=== PATIENT | female | born 1990 | race Caucasian/White ===

== ENCOUNTER 2019-11-07 15:46 | Emergency (ER) | payer SELFPAY ==
[~2019-11-07] VITALS: Ht 160 cm; Wt 80.3 kg
[~2019-11-07 15:46] MED LIST: ACET500T68 PO; CYCL5TAB PO; HYDR-3165 PO; HYDR1TAB10 PO; IBUP800T19 PO; SULF1TAB24 PO
--- NOTE | 2019-11-07 16:09 | PHYS DOC ---
Past History Past Medical History: No Pertinent History Past Surgical History: No Surgical History Smoking: Cigarettes, Greater than 1 pack/day Alcohol Use: Occasionally Drug Use: Marijuana General Adult EDM: Chief Complaint: ABDOMINAL PAIN HPI: HPI: 29-year-old female with past medical history significant for hepatitis presents to the ER with complaint of right upper quadrant abdominal pain. Her symptoms have been ongoing for 5 days and she was seen at [facility] 2 days ago where a CT scan was performed and apparently showed some pyelonephritis and the patient was started on Levaquin. She reports increasing and ongoing pain despite treatment. Her pain is currently moderate to severe and worse with inspiration and movement. She has no nausea or vomiting, constipation or diarrhea. No fever chills have been reported. She has been taking her antibiotics as prescribed. Patient reports a history of IV drug use but has been clean for 1 year. Review of Systems: Review of Systems: All other systems negative except as documented in HPI. Heart Score: Risk Factors: Risk Factors: DM, Current or recent (<one month) smoker, HTN, HLP, family history of CAD, obesity. Risk Scores: Score 0 - 3: 2.5% MACE over next 6 weeks - Discharge Home Score 4 - 6: 20.3% MACE over next 6 weeks - Admit for Clinical Observation Score 7 - 10: 72.7% MACE over next 6 weeks - Early Invasive Strategies Allergies: Allergies: Allergies Coded Allergies Type Severity Reaction Last Updated Verified No Known Drug Allergies 07/19/13 No Physical Exam: PE: Constitutional: Well developed, well nourished, patient appears uncomfortable an d is holding her right upper quadrant HENT: Normocephalic, atraumatic, bilateral external ears normal, oropharynx moist, no oral exudates, nose normal. [] Eyes: PERRLA, EOMI, conjunctiva normal, no discharge. [] Neck: Normal range of motion, no tenderness, supple, no stridor. [] Cardiovascular:Heart rate regular rhythm, no murmur [] Lungs & Thorax: Bilateral breath sounds clear to auscultation [] Abdomen: Bowel sounds normal, soft, right upper quadrant tenderness to palpation Skin: Warm, dry, no erythema, no rash. [] Back: No tenderness, no CVA tenderness. [] Extremities: No tenderness, no cyanosis, no clubbing, ROM intact, no edema. [] Neurologic: Alert and oriented X 3, normal motor function, normal sensory function, no focal deficits noted. [] Psychologic: Affect normal, judgement normal, mood normal. [] EKG: EKG: [] Radiology/Procedures: Radiology/Procedures: Limited US: IMPRESSION: No diagnostic evidence of acute cholecystitis, although minimal gallbladder distention limits evaluation. Poorly visualized pancreas. Course & Med Decision Making: Course & Med Decision Making Pertinent Labs and Imaging studies reviewed. (See chart for details) 1608: Patient seen for right upper quadrant pain x5 days. She prefers not to have an IV started at this time as she has really poor veins and would prefer a straight stick blood drawl and IM pain medications. Will check labs, obtain ultrasound, urinalysis to recheck urine to ensure pyelonephritis is improving. 1729: This patient's work-up is complete at this time and her ultrasound is rather unremarkable showing only mild distention and no evidence of cholecystitis. Her labs do not reveal evidence of infection and her urinalysis does not show evidence of infection either. Her liver enzymes are elevated but she has known hepatitis C which could be causing some discomfort; she has not been treated. At this time will obtain chest x-ray to rule out atypical pneumonia, patient is to continue her Levaquin. If her chest x-ray is negative she will be discharged home with a prescription for tramadol for pain. If she continues to have discomfort she is to call [facility] Surgery for an outpatient follow-up. Haven Disclaimer: Haven Disclaimer: This electronic medical record was generated, in whole or in part, using a voice recognition dictation system. Departure Departure: Impression: Primary Impression: Right upper quadrant abdominal pain Additional Impressions: Elevated liver enzymes Hepatitis C Disposition: 01 HOME/RESIDENCE PRIOR TO ADM Condition: STABLE Referrals: SAI HOPE MD Please call to make an appointment for ongoing discomfort. Patient Instructions: Hepatitis C Additional Instructions: If you continue to have discomfort please call the general surgeon provided for follow-up. You should consider getting treatment for your hepatitis C. Scripts Tramadol Hcl (TRAMADOL HCL) 50 Mg Tablet 50 MG PO PRN Q6HRS PRN for PAIN for 3 Days, #12 TAB 0 Refills Prov: CARA LORA DO 11/07/19 Justification of Admission: Justification of Admission: Justification of Admission Dx: N/A CARA LORA DO Nov 07, 2019 16:09
[2019-11-07] MEDS ORDERED: KETOROLAC 60 MG/2 ML VIAL. IM ONE (16:15)
[2019-11-07 16:38] LABS: BASO % 1 % (0-3); EOS # 0.1 x10^3/uL (0.0-0.7); EOS % 1 % (0-3); HEMATOCRIT 39.8 % (36.0-47.0); HEMOGLOBIN 13.1 g/dL (12.0-15.5); LYMPH # 1.7 x10^3/uL (1.0-4.8); LYMPH % 24 % (24-48); MEAN CORPUSCULAR HEMOGLOBIN 32 pg (25-35); MEAN CORPUSCULAR HGB CONC 33 g/dL (31-37); MEAN CORPUSCULAR VOLUME 96 fL (79-100); MONO # 0.7 x10^3/uL (0.0-1.1); MONO % 9 % (0-9); NEUT # 4.8 x10^3uL (1.8-7.7); NEUT % 65 % (31-73); PLATELET COUNT 253 x10^3/uL (140-400); RED BLOOD COUNT 4.14 x10^6/uL (3.50-5.40); RED CELL DISTRIBUTION WIDTH 13.2 % (11.5-14.5); WHITE BLOOD COUNT 7.3 x10^3/uL (4.0-11.0)
[2019-11-07 16:44] LABS: CALCIUM 8.4 mg/dL (8.5-10.1); CREATININE 0.8 mg/dL (0.6-1.0); GFR 84.8; POTASSIUM 4.3 mmol/L (3.5-5.1)
[2019-11-07 16:50] LABS: ALBUMIN 3.1 g/dL (3.4-5.0); ALBUMIN/GLOBULIN RATIO 0.7 (1.0-1.7); TOTAL BILIRUBIN 0.2 mg/dL (0.2-1.0); TOTAL PROTEIN 7.4 g/dL (6.4-8.2)
[2019-11-07 16:56] LABS: BACTERIA,URINE 0 /HPF (0-FEW); BILIRUBIN,URINE NEG (NEG); CLARITY,URINE HAZY; COLOR,URINE YELLOW; GLUCOSE,URINE NEG (NEG); NITRITE,URINE NEG (NEG); SQUAMOUS EPITHELIAL CELL,UR MOD /LPF
--- NOTE | 2019-11-07 17:17 | RAD ---
EXAMINATION: RIGHT UPPER QUADRANT ULTRASOUND CLINICAL HISTORY: Right upper quadrant abdominal pain TECHNIQUE: Sonography of the right upper quadrant was performed. COMPARISON: None FINDINGS: Pancreas: Poorly visualized secondary to prominent overlying bowel gas. Liver: - Echotexture: Normal, homogeneous. - Echogenicity: Normal - Surface contour: Smooth - Lesions: None. Biliary: No intrahepatic biliary duct dilation. - CBD: 4 mm. - Gallbladder: Minimally distended limiting evaluation for wall thickening. No cholelithiasis or pericholecystic fluid. Right Kidney: Measures 11.7 cm in length. No hydronephrosis or focal lesion. Ascites: None. IMPRESSION: No diagnostic evidence of acute cholecystitis, although minimal gallbladder distention limits evaluation. Poorly visualized pancreas. Electronically signed by: Chris Warren DO (11/07/2019 5:14 PM) [id number]
[2019-11-07 17:30] VITALS: BP 108/61
[2019-11-07] MEDS ORDERED: TRAM50TA PO (17:37)
--- NOTE | 2019-11-07 18:17 | RAD ---
EXAM: CHEST 2 VIEWS. HISTORY: Pain. COMPARISON: None. FINDINGS: Frontal and lateral views of the chest are obtained. There are no confluent infiltrates. There is no pneumothorax or pleural effusion. The heart is not enlarged. IMPRESSION: 1. No confluent infiltrates. Electronically signed by: Tiffanie Sanchez MD (11/07/2019 6:14 PM) [facility]
== END 2019-11-07 18:01 | disposition home or self-care (01) ==
LOC: ER 15:46
DX: R10.11 Right upper quadrant pain (principal); R74.8 Abnormal levels of other serum enzymes; B19.20 Unspecified viral hepatitis C without hepatic coma; F17.210 Nicotine dependence, cigarettes, uncomplicated
CPT/HCPCS: 36415; 71046; 76705; 80053; 81001; 81025; 83690; 85025; 96372; 99285; J1885

== ENCOUNTER 2020-02-27 02:07 | Emergency (ER) | payer SELFPAY ==
[~2020-02-27] VITALS: Ht 160 cm; Wt 90.6 kg
[~2020-02-27 02:07] MED LIST changes: +TRAM50TA PO
[2020-02-27 02:42] LABS: BILIRUBIN,URINE NEG (NEG); CLARITY,URINE HAZY; COLOR,URINE YELLOW; GLUCOSE,URINE NEG (NEG); NITRITE,URINE NEG (NEG); RBC,URINE OCC /HPF (0-2); UROBILINOGEN,URINE 0.2 mg/dL (0.2 mg/dL)
[2020-02-27 02:43] LABS: BACTERIA,URINE FEW /HPF (0-FEW); SQUAMOUS EPITHELIAL CELL,UR FEW /LPF
[2020-02-27 02:45] LABS: U PREG PATIENT NEGATIVE (NEG)
--- NOTE | 2020-02-27 02:58 | PHYS DOC ---
Past History Past Medical History: No Pertinent History Past Surgical History: Other Additional Past Surgical Histo: JAW Smoking: Cigarettes, Greater than 1 pack/day Alcohol Use: None Drug Use: Heroin, Marijuana Adult General Chief Complaint Chief Complaint: MULTIPLE COMPLAINTS [facility] HPI Patient is a 29-year-old female presenting via POV for multiple complaints. First, patient reports what she is concerned of folliculitis of bilateral lower extremities. Started approximately 3 days ago after she shaved her legs. Reports increased erythema, redness and some pustules around certain follicles of her bilateral lower legs. Second, patient complains of dysuria. This has been ongoing for approximately 24 to 48 hours. Patient has no concern for STDs, no discharge or bleeding noted. Lastly, patient complains of painful abscess in left axilla. Patient has history of abscesses in the past. 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 Patient denies any fevers, any chills or diaphoresis, no chest pain or shortness of breath, no abdominal pain, no nausea vomit diarrhea Review of Systems Review of Systems Fourteen body systems of review of systems have been reviewed. See HPI for pertinent positives and negative responses, other sierra all other systems are negative, non-pertinent or non-contributory Allergies Allergies Allergies Coded Allergies Type Severity Reaction Last Updated Verified No Known Drug Allergies 07/19/13 No Physical Exam Physical Exam Constitutional: Well developed, well nourished, no acute distress, non-toxic appearance. HENT: Normocephalic, atraumatic, bilateral external ears normal, oropharynx moist, no oral exudates, nose normal. Eyes: PERRLA, EOMI, conjunctiva normal, no discharge. Neck: Normal range of motion, no tenderness, supple, no stridor. Cardiovascular: Heart rate regular, sinus rhythm, no murmurs rubs or gallops Lungs & Thorax: Bilateral breath sounds clear to auscultation Abdomen: Bowel sounds normal, soft, mild suprapubic tenderness appreciated, no masses, no pulsatile masses. Nonsurgical abdomen, no peritoneal signs Skin: Warm, dry, no erythema, no rash. Patient has findings of folliculitis on bilateral lower extremities. She also has skin abscess that is palpable and fluctuant to palpation under left axilla approximately 4 x 5 cm in size, it is raised and tender to palpation Back: No tenderness, no CVA tenderness. Extremities: No tenderness, no cyanosis, no clubbing, ROM intact, no edema. Neurologic: Alert and oriented X 3, grossly normal motor & sensory function, no focal deficits noted. Psychologic: Anxious affect and mood Current Patient Data Vital Signs Vital Signs Date Time Temp Pulse Resp B/P (MAP) Pulse Ox O2 Delivery O2 Flow Rate FiO2 02/27/20 02:14 97.2 114 16 135/98 (110) 100 Room Air Lab Results Laboratory Tests Test 02/27/20 02:14 Urine Collection Type Unknown Urine Color Yellow Urine Clarity Hazy Urine pH 5.5 Urine Specific [place] >=1.030 Urine Protein Neg (NEG-TRACE) Urine Glucose (UA) Neg mg/dL (NEG) Urine Ketones (Stick) Neg mg/dL (NEG) Urine Blood Trace (NEG) Urine Nitrite Neg (NEG) Urine Bilirubin Neg (NEG) Urine Urobilinogen Dipstick 0.2 mg/dL (0.2 mg/dL) Urine Leukocyte Esterase Trace (NEG) Urine RBC Occ /HPF (0-2) Urine WBC 11-20 /HPF (0-4) Urine Squamous Epithelial Cells Few /LPF Urine Bacteria Few /HPF (0-FEW) Urine Test Negative (NEG) EKG EKG [] Radiology/Procedures Radiology/Procedures [] Heart Score Risk Factors: Risk Factors: DM, Current or recent (<one month) smoker, HTN, HLP, family history of CAD, obesity. Risk Scores: Risk Factors: DM, Current or recent (<one month) smoker, HTN, HLP, family history of CAD, obesity. Course & Med Decision Making Course & Med Decision Making I discussed most likely diagnosis of folliculitis, suspect UTI, and abscess of left axilla. She is high risk for MRSA given history of IV drug abuse etc. Patient's left axilla abscess incised and drained while in ER with copious purulent malodorous material expressed, this material was cultured which is pending. Patient put on Bactrim which will cover abscess, folliculitis and suspect UTI. I disclosed side effects of Bactrim such as Galvan-Ajit skin changes, kidney abnormalities etc. I stressed need for close outpatient follow- up to review today's ER visit. Strict return precautions were also discussed at length with good understanding by patient. Patient voiced understanding and agreement with the plan. Patient knows to come back for repeat evaluation if concerning signs or symptoms present prior to outpatient follow-up. Hemodynamically stable, ambulatory and well-appearing at time of disposition. Dragon Disclaimer Dragon Disclaimer This electronic medical record was generated, in whole or in part, using a voice recognition dictation system. Incision and Drainage Indication: 4 x 5 cm abscess of left axilla that likely will not respond to supportive care practices nor antibiotics alone Procedure: The patient was positioned appropriately and the skin over the inci mitzy site was wiped clean with alcohol prep pad. Local anesthesia was 2% lidocaine without epinephrine, 1 cc was administered. An incision was then made over the abscess and malodorous serosanguineous material was expressed. Loculations were dissected using Q-tip and evacuated. The drainage cavity was then left open to encourage continued drainage of retained materials. The patien ts tetanus status up-to-date. The patient tolerated the procedure well without any observed or reported complications besides expected pain. Departure Departure: Impression: Primary Impression: Abscess Additional Impression: Folliculitis Disposition: HOME SELF CARE/HOMELESS Condition: IMPROVED Referrals: [facility] (PCP) Patient Instructions: Abscess, Care After Additional Instructions: You were evaluated in the Emergency Department for an abscess. Your abscess was incised and drained in the Emergency Department. You should change the dressing every 24 hours. Please keep the areas surrounding the abscess clean and dry. Take the antibiotics prescribed to you in full as directed. Please follow up with your primary care physician as needed. If you do not have a primary doctor, you can call your insurance company to find one. If you do not have insurance, you can go to the finance/registration department for more assistance. Return to the Emergency Department if you experience worsening pain, persistent fevers greater than 100.4, an increase in area of redness, increased tenderness/warmth around the abscess, foul smelling discharge from the abscess, or any other concerning symptoms. Scripts Hydrocodone/Ibuprofen (HYDROCODONE-IBUPROFEN 7.5-200 ) 1 Each Tablet 1 TAB PO PRN Q6HRS PRN for PAIN, #5 TAB 0 Refills Prov: JOJO LUTZ DO 02/27/20 Sulfamethoxazole/Trimethoprim (BACTRIM DS TABLET) 1 Each Tablet 1 TAB PO BID for abscess for 5 Days, #10 TAB 0 Refills Prov: JOJO LUTZ DO 02/27/20 Problem Qualifiers JOJO LUTZ DO Feb 27, 2020 02:58
[2020-02-27] MEDS ORDERED: SMZ/TMP 800/160MG TABLET. PO ONE (03:30)
[2020-02-27] MEDS ORDERED: HYDROcodone/APAP 7.5/325MG 1 TAB TABLET PO ONE (03:30)
[2020-02-27] MEDS ORDERED: SULF1TAB24 PO (03:43)
[2020-02-27] MEDS ORDERED: HYDR-1179 PO (03:43)
[2020-02-27 03:45] VITALS: BP 128/70
== END 2020-02-27 03:48 | disposition home or self-care (01) ==
LOC: ER 02:07
DX: L02.412 Cutaneous abscess of left axilla (principal); L73.9 Follicular disorder, unspecified; F17.210 Nicotine dependence, cigarettes, uncomplicated
CPT/HCPCS: 10060; 81001; 81025; 87086; 99283

== ENCOUNTER 2020-03-29 15:20 | Emergency (ER) | payer SELFPAY ==
[~2020-03-29] VITALS: Ht 160 cm; Wt 88.8 kg
[~2020-03-29 15:20] MED LIST changes: +HYDR-1179 PO
[2020-03-29 15:24] VITALS: BP 145/94
--- NOTE | 2020-03-29 15:34 | PHYS DOC ---
Past History Past Medical History: Hepatitis (HOMER QUINONES APRN) Past Surgical History: Other Additional Past Surgical Histo: JAW (HOMER QUINONES APRN) Smoking: Cigarettes, Greater than 1 pack/day Alcohol Use: None Drug Use: Heroin, Marijuana (HOMER QUINONES APRN) Adult General Chief Complaint Chief Complaint: GENERALIZED BODY ACHES HPI HPI Patient is a 29-year-old female who presents to the emergency department complaints of being exposed by grandmother who recently of the COVID-19 virus. Patient states that beginning 2 days ago last Thursday she started experiencing fever with chills, off-and-on headaches, fatigue, muscle and body aches, loss of smell loss of taste, nausea vomiting and diarrhea. Patient currently denies any nausea or headache at this time. Patient states she wishes to be tested for the COVID-19 virus and obtain a work excuse. Patient denies chest pains, cough, congestion, nasal congestion. Patient denies any rashes of her skin. Patient denies any other physical symptoms or physical complaints. Patient states she has not had a flu vaccine in 2019, has not had a COVID-19 virus vaccine. (HOMER QUINONES APRN) Review of Systems Review of Systems 14 body systems of review of systems have been reviewed. See HPI for pertinent positives and negative responses, otherwise all other systems are negative, nonpertinent or noncontributory. (HOMER QUINONES APRN) Allergies Allergies Allergies Coded Allergies Type Severity Reaction Last Updated Verified No Known Drug Allergies 07/19/13 No (HOMER QUINONES APRN) Physical Exam Physical Exam Constitutional: Well developed, well nourished, no acute distress, non-toxic appearance. HENT: Normocephalic, atraumatic, bilateral external ears normal, oropharynx moist, no oral exudates, nose normal. Eyes: PERRLA, EOMI, conjunctiva normal, no discharge. Neck: Normal range of motion, no tenderness, supple, no stridor. Cardiovascular:Heart rate regular rhythm, no murmur Lungs & Thorax: Bilateral breath sounds clear to auscultation Abdomen: Bowel sounds normal, soft, no tenderness, no masses, no pulsatile masses. Skin: Warm, dry, no erythema, no rash. Back: No tenderness, no CVA tenderness. Extremities: No tenderness, no cyanosis, no clubbing, ROM intact, no edema. Neurologic: Alert and oriented X 3, normal motor function, normal sensory function, no focal deficits noted. Psychologic: Affect normal, judgement normal, mood normal. (HOMER QUINONES APRN) Current Patient Data Vital Signs Vital Signs Date Time Temp Pulse Resp B/P (MAP) Pulse Ox O2 Delivery O2 Flow Rate FiO2 03/29/20 15:24 98.5 112 16 145/94 (111) 100 Room Air (HOMER QUINONES APRN) EKG EKG [] (HOMER QUINONES APRN) Radiology/Procedures Radiology/Procedures [] (HOMER QUINONES APRN) Heart Score Risk Factors: Risk Factors: DM, Current or recent (<one month) smoker, HTN, HLP, family history of CAD, obesity. Risk Scores: Risk Factors: DM, Current or recent (<one month) smoker, HTN, HLP, family history of CAD, obesity. (HOMER QUINONES APRN) Course & Med Decision Making Course & Med Decision Making Pertinent Labs and Imaging studies reviewed. (See chart for details) 29-year-old female, vital signs reviewed, presents emergency department questing a COVID-19 test. Patient had several COVID-19 virus symptom complaints, patient's physical exam was unremarkable. We will test for the COVID-19 virus today in the emergency department, will prescribe Zofran medication, will give 2 days off work pending COVID-19 virus exam with extension if COVID-19 virus positive. Patient gave verbal understanding of discharge home instructions, return to ER precautions or concerns, COVID-19 virus education, was discharged home without incident. Patient diagnosed with a PUI, I wore N95 mask, goggles, face shield, disposable PPE gown, gloves during all contact with patient. Patient was not in a negative pressure room. (HOMER QUINONES APRN) Dragon Disclaimer Dragon Disclaimer This electronic medical record was generated, in whole or in part, using a voice recognition dictation system. (HOMER QUINONES APRN) Departure Departure: Impression: Primary Impression: Person under investigation for COVID-19 Additional Impressions: Counseled about COVID-19 virus infection Educated about COVID-19 virus infection Disposition: 01 DC HOME SELF CARE/HOMELESS Condition: GOOD Referrals: PCP,NO (PCP) Additional Instructions: Please take medication as directed, you will be given a work excuse for 2 days pending your COVID-19 test results, if positive your work excuse will be extended an additional 10 more days. Please return to the emergency department for worsening symptoms or other concerns, see your primary care doctor soon, I have attached COVID-19 virus education material to this document, please review. EMERGENCY DEPARTMENT GENERAL DISCHARGE INSTRUCTIONS Thank you for coming to [facility] (ED) today and trusting us with you care. We trust that you had a positivie experience in our Emergency Department. If you wish to speak to the department management, you may call the director at [phone]. YOUR FOLLOW UP INSTRUCTIONS ARE FOLLOWS: 1. Do you have a private Doctor? If you do not have a private doctor, please ask for a resource list of physicians or clinics that may be able to assist you with follow up care. 2. The Emergency Physician has interpreted your x-rays. The X-Ray specialist will also review them. If there is a change in the findings, you will be notified in 48 hours when at all possible. 3. A lab test or culture has been done, your results will be reviewed and you will be notified if you need a change in treatment. ADDITIONAL INSTRUCTIONS AND INFORMATION: 1. Your care today has been supervised by a physician who is specially trained in emergency care. Many problems require more than one evaluation for a complete diagnosis and treatment. We recommend that you schedule your follow up appointment as recommended to ensure complete treatment of you illness or injury. If you are unable to obtain follow up care and continue to have a problem, or if your condition worsens, we recommend that you return to the ED. 2. We are not able to safely determine your condition over the phone nor are we able to give sound medical advice over the phone. For these safety reasons, if you call for medical advice we will ask you to come to the ED for further evaluation. 3. If you have any questions regarding these discharge instructions please call the ED at [phone]. SAFETY INFORMATION: In the interest of safety, wellness, and injury prevention; we encourage you to wear your sealbelt, if you smoke; quite smoking, and we encourage family to use a protective helmet for bicycling and other sporting events that present an increased risk for head injury. IF YOUR SYMPTOMS WORSEN OR NEW SYMPTOMS DEVELOP, OR YOU HAVE CONCERNS ABOUT YOUR CONDITION; OR IF YOUR CONDITION WORSENS WHILE YOU ARE WAITING FOR YOUR FOLLOW UP APPOINTMENT; EITHER CONTACT YOUR PRIMARY CARE DOCTOR, THE PHYSICIAN WHOSE NAME AND NUMBER YOU WERE GIVEN, OR RETURN TO THE ED IMMEDIATELY. You have been tested for or diagnosed with COVID-19. It is an infection caused by a new type of coronavirus. COVID-19 will cause cold-like or mild flu symptoms in most. It can cause more severe symptoms like problems breathing in some. There is no treatment for COVID-19. The body will clear the infection over time. Self-care will help to ease discomfort. Steps to Take: Self-Care Rest as needed. Healthy habits may help you feel better. Steps include: Choose healthy foods including fruits and vegetables. Drink water throughout the day. Get plenty of sleep each night. If you smoke, try to quit. It may ease breathing. Avoid alcohol. Keep Others Healthy The virus can spread to others. Droplets are released every time you sneeze or cough. The droplets can get into the mouth, nose, or eyes of people near you and lead to infection. To lower the chances of spreading COVID-19 to others: Stay at home until your doctor has said it is safe to leave. If you tested positive this will mean staying isolated until both of the following are true: At least 7 days have passed since the start of illness. You are free of fever for at least 72 hours without the use of medicine. During this time: - Avoid public areas, events, or transportation. Do not return to work or school until your doctor has said it is safe to do so. - Call ahead if you need to go to a medical center. Let them know you may have COVID-19. It will help them guide you where to go. They may also ask you to wear a facemask when you come to the office. - If you call for emergency medical services, let them know you may have COVID- 19. While at home: - Try to avoid close contact with others. Stay about 6 feet away. - If possible, spend most of your time in a separate room from others. - Use a face mask if you will be in close contact with others such as sharing a room or vehicle. - Have someone wipe down common surfaces in the home. Use household director sales every day on areas like doorknobs, counters, or sinks. - Cough or sneeze into a tissue. Throw the tissue away right after use. If a tissue is not available, cough or sneeze into your elbow. - Wash your hands often. Wash them after sneezing or coughing. Use soap and water and wash for at least 20 seconds. Alcohol based hand vacuum cleaner repairer can be used if soap and water is not available. - Do not prepare food for others. Avoid sharing personal items like forks, spoons, or toothbrushes. - Avoid close contact with pets while you are sick. There is no evidence of the virus passing to pets. This is a safety step until more is known about this virus. Isolation can be frustrating. Social interaction can help. Keep in touch with friends and family through phone and tech options. You can still interact with others in your home, just keep a safe distance of about 6 feet. Follow-up: Your doctors office will check in with you to see if there are any changes in your health. You may be asked to keep track of symptoms to share with them. They will also let you know when you are clear to be in public again. Problems to Look Out For: Contact your doctor if your recovery is not going as you expect. Get emergency care if you have problems such as: - Trouble breathing - Nonstop chest pain or pressure - Changes in awareness, confusion, or problems waking - Lips or face have bluish color - Worsening of symptoms If you think you have an emergency, call for emergency medical services right away. As taken from [facility] Ondansetron Hcl (ZOFRAN) 4 Mg Tablet 4 MG PO TID PRN PRN for NAUSEA, #9 TAB 0 Refills Prov: HOMER QUINONES APRN 03/29/20 Attending Signature Attending Signature I have reviewed the PA/COMPRESSOR BATTERY PELLETS's note and plan of care. I was available for consultation as needed during the patient's visit in the emergency department. I agree with the clinical impression, plan, and disposition. (HOMER BILLS DO) Problem Qualifiers HOMER QUINONES APRN Mar 29, 2020 15:34 HOMER BILLS DO Mar 30, 2020 06:26
[2020-03-29] MEDS ORDERED: ONDA4TAB7 PO (15:57)
--- NOTE | 2020-04-02 09:59 | NUR ---
IP: attempt to notify patient of COVID result, unable to leave callback message.
== END 2020-03-29 16:05 | disposition home or self-care (01) ==
LOC: ER 15:20
DX: R50.9 Fever, unspecified (principal); R51.9 Headache, unspecified; R11.2 Nausea with vomiting, unspecified; R19.7 Diarrhea, unspecified; R43.8 Other disturbances of smell and taste; M79.10 Myalgia, unspecified site; F17.210 Nicotine dependence, cigarettes, uncomplicated; Z20.822 Contact with and (suspected) exposure to COVID-19
CPT/HCPCS: 99283; C9803; U0003

== ENCOUNTER 2020-05-22 09:34 | Emergency (ER) | payer SELFPAY ==
[~2020-05-22] VITALS: Ht 160 cm; Wt 81.8 kg
[~2020-05-22 09:34] MED LIST changes: +ONDA4TAB7 PO
[2020-05-22] MEDS ORDERED: methylPREDNISolone SOD SUCC PF 125 MG/2 ML VIAL. IV ONE (10:00)
[2020-05-22] MEDS ORDERED: predniSONE 10 MG TABLET PO ONE (10:00)
--- NOTE | 2020-05-22 10:00 | PHYS DOC ---
Past History Past Medical History: Hepatitis Past Surgical History: Other Additional Past Surgical Histo: JAW Smoking: Cigarettes, Greater than 1 pack/day Alcohol Use: None Drug Use: Heroin, Marijuana General Adult EDM: Chief Complaint: SHORTNESS OF BREATH HPI: HPI: 29-year-old female who presents for evaluation of a 4-day history of diffuse myalgias and a 2-day history of fever. Associate with 1 day of nausea and vomiting without abdominal pain. Also reports loss of taste and smell. Recent exposure to a friend who tested positive for COVID-19 2 days ago. Review of Systems: Review of Systems: Gen: No fever, chills. Eyes: No blurred vision, diplopia. ENT: No nasal congestion, sore throat. CV: No CP, palpitations. Resp. No cough. Reports dyspnea. GI: No abd pain. Reports N/V. : No dysuria, hematuria. Neuro: No FERNANDEZ, dizziness, weakness. MSK: Reports myalgias. Skin: No acute rash or lesion. Remainder of systems reviewed and negative unless otherwise specified. Current Medications: Current Meds: Current Medications Medications (Trade) Dose Ordered Sig/Jayshree Start Time Stop Time Status Last Admin Dose Admin Methylprednisolone Sodium Succinate (SOLU-Medrol 125MG VIAL) 125 mg 1X ONCE 05/22/20 10:00 05/22/20 10:01 Allergies: Allergies: Allergies Coded Allergies Type Severity Reaction Last Updated Verified No Known Drug Allergies 07/19/13 No Physical Exam: PE: Gen: NAD. Well nourished. Head: NC/AT. Eyes: No scleral icterus. No conjunctival injection. ENT: MMM. Posterior OP clear. Neck: Supple. CV: RRR. Peripheral pulses intact. Resp: Faint wheezing. No increased work of breathing. Abd: Soft. NT. ND. MSK: No peripheral cyanosis. No edema. Neuro: Awake and alert. Skin. Warm. Dry. Psych: Appropriate mood & affect. Current Patient Data: Labs: Laboratory Tests Test 05/22/20 09:49 POC Urine HCG, Qualitative hcg negative (Negative) EKG: EKG: [] Radiology/Procedures: Radiology/Procedures: PROCEDURE: CHEST AP ONLY INDICATION: Reason: SHORTNESS OF BREATH / Spl. Instructions: / History: COMPARISON: October 2019 FINDINGS: Single view of chest obtained. Cardiac silhouette is unremarkable. No definite new region of consolidation or edema. No gross osseous destructive lesion. IMPRESSION: * No new region of airspace consolidation. Electronically signed by: Dale Fong MD (05/22/2020 10:16 AM) [id number] Heart Score: C/O Chest Pain: N/A Risk Factors: Risk Factors: DM, Current or recent (<one month) smoker, HTN, HLP, family history of CAD, obesity. Risk Scores: Score 0 - 3: 2.5% MACE over next 6 weeks - Discharge Home Score 4 - 6: 20.3% MACE over next 6 weeks - Admit for Clinical Observation Score 7 - 10: 72.7% MACE over next 6 weeks - Early Invasive Strategies Course & Med Decision Making: Course & Med Decision Making Pertinent Labs and Imaging studies reviewed. (See chart for details) In summary, 29-year-old female who presents for evaluation of myalgias, fever, nausea, vomiting. No abdominal pain or other GI// symptoms. Hemodynamically stable. Wheezing on auscultation. History of tobacco abuse. No increased work of breathing. Benign abdomen. Lab work is otherwise unrevealing. Chest x-ray clear. COVID-19 test remains pending. We discharged home with prednisone and inhaler. Outpatient follow-up. Return precautions given. Haven Disclaimer: Haven Disclaimer: This electronic medical record was generated, in whole or in part, using a voice recognition dictation system. Departure Departure: Impression: Primary Impression: Viral syndrome Disposition: 01 DC HOME SELF CARE/HOMELESS Condition: STABLE Referrals: PCP,NO (PCP) Patient Instructions: Viral Syndrome Scripts Ondansetron (ONDANSETRON ODT) 4 Mg Tab.rapdis 1 TAB PO PRN Q6-8HRS for nausea, #16 TAB Prov: LE,TEDDY H DO 05/22/20 Albuterol Sulfate (PROAIR HFA INHALER) 8.5 Gm Hfa.aer.ad 2 PUFF IH PRN Q4-6HRS PRN for wheezing for 21 Days, #1 INHALER 0 Refills Prov: LE, H DO 05/22/20 Prednisone (PREDNISONE) 50 Mg Tablet 1 TAB PO DAILY for Asthma, #5 TAB You received this medication in the emergency room today. You will starting your next dose tomorrow. Prov: LE,TEDDY H DO 05/22/20 LE,TEDDY H DO May 22, 2020 10:00
[2020-05-22 10:16] LABS: BILIRUBIN,URINE NEG (NEG); CLARITY,URINE CLEAR; COLOR,URINE YELLOW; GLUCOSE,URINE NEG (NEG)
[2020-05-22 10:17] LABS: BACTERIA,URINE MOD /HPF (0-FEW); NITRITE,URINE NEG (NEG); SQUAMOUS EPITHELIAL CELL,UR MANY /LPF; UROBILINOGEN,URINE 0.2 mg/dL (0.2 mg/dL)
--- NOTE | 2020-05-22 10:18 | RAD ---
INDICATION: Reason: SHORTNESS OF BREATH / Spl. Instructions: / History: COMPARISON: October 2019 FINDINGS: Single view of chest obtained. Cardiac silhouette is unremarkable. No definite new region of consolidation or edema. No gross osseou s destructive lesion. IMPRESSION: * No new region of airspace consolidation. Electronically signed by: Dale Fong MD (05/22/2020 10:16 AM) [id number]
[2020-05-22 10:37] LABS: BASO % 1 % (0-3); EOS # 0.1 x10^3/uL (0.0-0.7); EOS % 2 % (0-3); HEMATOCRIT 40.5 % (36.0-47.0); HEMOGLOBIN 13.3 g/dL (12.0-15.5); LYMPH % 43 % (24-48); MEAN CORPUSCULAR HEMOGLOBIN 30 pg (25-35); MEAN CORPUSCULAR HGB CONC 33 g/dL (31-37); MEAN CORPUSCULAR VOLUME 90 fL (79-100); MONO # 0.5 x10^3/uL (0.0-1.1); MONO % 10 % (0-9); NEUT # 2.1 x10^3uL (1.8-7.7); NEUT % 45 % (31-73); PLATELET COUNT 264 x10^3/uL (140-400); RED BLOOD COUNT 4.48 x10^6/uL (3.50-5.40); RED CELL DISTRIBUTION WIDTH 13.8 % (11.5-14.5); WHITE BLOOD COUNT 4.8 x10^3/uL (4.0-11.0)
[2020-05-22 10:45] LABS: CALCIUM 8.7 mg/dL (8.5-10.1); CREATININE 0.9 mg/dL (0.6-1.0); POTASSIUM 4.1 mmol/L (3.5-5.1)
[2020-05-22 10:51] LABS: ALBUMIN 3.5 g/dL (3.4-5.0); ALBUMIN/GLOBULIN RATIO 0.9 (1.0-1.7); TOTAL BILIRUBIN 0.3 mg/dL (0.2-1.0); TOTAL PROTEIN 7.5 g/dL (6.4-8.2)
[2020-05-22] MEDS ORDERED: PRED50TA PO (11:18)
[2020-05-22] MEDS ORDERED: ALBU2.5V8 IH (11:18)
[2020-05-22] MEDS ORDERED: ONDA4TAB12 PO (11:19)
[2020-05-22 11:21] VITALS: BP 139/84
== END 2020-05-22 11:43 | disposition home or self-care (01) ==
LOC: ER 09:34
DX: B34.9 Viral infection, unspecified (principal); F17.210 Nicotine dependence, cigarettes, uncomplicated; Z20.822 Contact with and (suspected) exposure to COVID-19
CPT/HCPCS: 36415; 71045; 80053; 81001; 81025; 83735; 85025; 99284; C9803; J7512; U0003; U0005

== ENCOUNTER 2020-08-17 15:29 | Emergency (ER) | payer SELFPAY ==
[~2020-08-17] VITALS: Ht 160 cm; Wt 96.1 kg
[~2020-08-17 15:29] MED LIST changes: +ALBU2.5V8 IH; +ONDA4TAB12 PO; +PRED50TA PO
[2020-08-17] MEDS ORDERED: ACETAMINOPHEN 325 MG TABLET PO ONE (16:15)
--- NOTE | 2020-08-17 16:17 | PHYS DOC ---
Past History Past Medical History: Hepatitis, Other Additional Past Medical Histor: VASCULITIS (MICHELLE SETHI APRN) Past Surgical History: Other Additional Past Surgical Histo: JAW (MICHELLE SETHI APRN) Smoking: Cigarettes, Greater than 1 pack/day Alcohol Use: None Drug Use: Heroin, Marijuana (MICHELLE SETHI APRN) General Adult EDM: Chief Complaint: LACERATION/AVULSION HPI: HPI: Patient is a 30-year-old female coming in for head pain following a head injury. Patient reports that 2 days ago she was cleaning her kitchen and she was bent over when she stood up she hit her head on the corner of a wooden cabinet. She denies loss of consciousness. Her pain is located at the site of the laceration which is her left posterior aspect of her head. She rates her pain 9 out of 10 it is constant, she is taken ibuprofen with her last dose 1 hour ago. She is al so reporting blurred vision and dizziness with nausea. (MICHELLE SETHI APRN) Review of Systems: Review of Systems: 14 body systems of the review of systems have been reviewed. See HPI for pertinent positive and negative responses, otherwise all other systems are negative, nonpertinent or noncontributory (MICHELLE SETHI APRN) Current Medications: Current Meds: Current Medications Medications (Trade) Dose Ordered Sig/Jayshree Start Time Stop Time Status Last Admin Dose Admin Acetaminophen (Tylenol) 650 mg 1X ONCE 08/17/20 16:15 08/17/20 16:16 UNV (MICHELLE SETHI APRN) Allergies: Allergies: Allergies Coded Allergies Type Severity Reaction Last Updated Verified No Known Drug Allergies 07/19/13 No (MICHELLE SETHI APRN) Physical Exam: PE: Constitutional: Well developed, well nourished, no acute distress, non-toxic appearance. [] HENT: Normocephalic, bilateral external ears normal with no otorrhea or rhinorrhea, approximate 1 cm laceration noted to the left posterior aspect of her head with no active bleeding. [] Eyes: PERRLA, EOMI, conjunctiva normal, no discharge, no raccoon eyes noted. [] Neck: Normal range of motion, no tenderness, supple, no stridor. No bony cervical spinal tenderness with palpation [] Cardiovascular:Heart rate regular rhythm, no murmur [] Lungs & Thorax: Bilateral breath sounds clear to auscultation [] Abdomen: Bowel sounds normal, soft, no tenderness, no masses, no pulsatile masses. [] Skin: Warm, dry, no erythema, no rash. [] Back: No tenderness, no bony spinal tenderness with palpation [] Extremities: No tenderness, no cyanosis, no clubbing, ROM intact, no edema. [] Neurologic: Alert and oriented X 3, normal motor function, normal sensory function, no focal deficits noted. [] Psychologic: Affect normal, judgement normal, mood normal. [] (MICHELLE SETHI APRN) Current Patient Data: Vital Signs: Vital Signs Date Time Temp Pulse Resp B/P (MAP) Pulse Ox O2 Delivery O2 Flow Rate FiO2 08/17/20 15:45 98.3 89 20 138/74 (95) 94 Room Air (MICHELLE SETHI APRN) EKG: EKG: [] (MICHELLE SETHI APRN) Radiology/Procedures: Radiology/Procedures: PROCEDURE: CT HEAD AND CERVICAL SPINE WO EXAM: Head and cervical spine CT without contrast. HISTORY: Trauma. Vision changes. TECHNIQUE: Computed tomographic images of the head and cervical spine were obtained without contrast. *One or more of the following individualized dose reduction techniques were utilized for this examination: 1. Automated exposure control. 2. Adjustment of the mA and/or kV according to patient size. 3. Use of iterative reconstruction technique. COMPARISON: 07/19/2013. FINDINGS: Head: There is no hemorrhage. There is no mass effect or midline shift. There is no hydrocephalus. Maradiaga-white matter differentiation pattern is intact. The orbits and visualized paranasal sinuses mastoid air cells are unremarkable. There is no suspicious calvarial lesion. Cervical spine: There is no listhesis. The vertebral bodies are normal in height. There is no fracture. There is no suspicious osseous lesion. There is left endplate remodeling and uncovertebral arthropathy at T3-C4, resulting in mild left foraminal stenosis. IMPRESSION: No acute intracranial finding or evidence of acute cervical spine trauma. Electronically signed by: Erinn Wakefield MD (08/17/2020 5:00 PM) [id number][] (MICHELLE SETHI APRN) Heart Score: C/O Chest Pain: No Risk Factors: Risk Factors: DM, Current or recent (<one month) smoker, HTN, HLP, family history of CAD, obesity. Risk Scores: Score 0 - 3: 2.5% MACE over next 6 weeks - Discharge Home Score 4 - 6: 20.3% MACE over next 6 weeks - Admit for Clinical Observation Score 7 - 10: 72.7% MACE over next 6 weeks - Early Invasive Strategies (MICHELLE SETHI APRN) Course & Med Decision Making: Course & Med Decision Making Pertinent Labs and Imaging studies reviewed. (See chart for details) Patient is a 30-year-old female that was seen in the ER today for head injury th at occurred [address] scan of her head and neck showed no acute findings. The laceration site had dried blood in her hair was matted, this was cleansed in the ER by ER nurse. After better visualization of the laceration it appears that the wound edges are well approximated with no need for laceration to be repaired. Patient was given Tylenol for her pain. Findings discussed with patient and she is agreeable to care plan. Patient ambulated with a steady gait from ER. Patient reports that she is supposed to be in court today and requires a note stating that she was in the ER in order to prevent getting a bench warrant for her arrest. Patient's friend was provided with a note stating that patient was currently in the ER and being evaluated. (MICHELLE SETHI APRN) Course & Med Decision Making I oversaw on the above date of service of this patient. This patient was evaluated, examined, treated, and dispositioned from the emergency department by the mid-level practitioner. Although I was working at the time and available for consultation, no assistance was requested and I did not see or immediately direct the care of this patient. I reviewed note and agree to findings, plan of care, and disposition as stated. Electronically signed, Jojo Lutz DO (JOJO LUTZ DO) Haven Disclaimer: Haven Disclaimer: This electronic medical record was generated, in whole or in part, using a voice recognition dictation system. (MICHELLE SETHI APRN) Departure Departure: Impression: Primary Impression: Head injury Qualified Codes: S09.90XA - Unspecified injury of head, initial encounter Additional Impression: Laceration of head Qualified Codes: S01.01XA - Laceration without foreign body of scalp, initial encounter Disposition: HOME / SELF CARE / HOMELESS Condition: GOOD Referrals: PCP,NO (PCP) Patient Instructions: Head Injury, Adult, Laceration Care, Adult, [id number] Additional Instructions: Thank you for choosing [facility] and allowing me to participate in your care. As we have discussed, your findings indicate that you have no a cute injury on your CT scan. As we have discussed, the treatment includes Tylenol or ibuprofen for pain or ice application. You could apply Polysporin to your head laceration. Please keep laceration clean and dry. Please follow up with your primary care provider tomorrow regarding your ER visit. If your symptoms worsen or you develop worsening of your head pain, blurred vision, passing out, uncontrollable nausea or vomiting worsening of your dizziness, or confusion please return. MICHELLE SETHI APRN Aug 17, 2020 16:17 JOJO LUTZ DO Aug 19, 2020 07:14
--- NOTE | 2020-08-17 17:03 | RAD ---
EXAM: Head and cervical spine CT without contrast. HISTORY: Trauma. Vision changes. TECHNIQUE: Computed tomographic images of the head and cervical spine were obtained without contrast. *One or more of the following individualized dose reduction techniques were utilized for this examina tion: 1. Automated exposure control. 2. Adjustment of the mA and/or kV according to patient size. 3. Use of iterative reconstruction technique. COMPARISON: 07/19/2013. FINDINGS: Head: There is no hemorrhage. There is no mass effect or midline shift. There is no hydrocephalus. Gr ay-white matter differentiation pattern is intact. The orbits and visualized paranasal sinuses mastoi d air cells are unremarkable. There is no suspicious calvarial lesion. Cervical spine: There is no listhesis. The vertebral bodies are normal in height. There is no fractur e. There is no suspicious osseous lesion. There is left endplate remodeling and uncovertebral arthrop athy at T3-C4, resulting in mild left foraminal stenosis. IMPRESSION: No acute intracranial finding or evidence of acute cervical spine trauma. Electronically signed by: Erinn Wakefield MD (08/17/2020 5:00 PM) [id number]
[2020-08-17 17:23] VITALS: BP 128/67
== END 2020-08-17 17:23 | disposition home or self-care (01) ==
LOC: ER 15:29
DX: S01.81XA Laceration without foreign body of other part of head, initial encounter (principal); W22.8XXA Striking against or struck by other objects, initial encounter; Y93.89 Activity, other specified; Y92.090 Kitchen in other non-institutional residence as the place of occurrence of the external cause; Y99.8 Other external cause status
CPT/HCPCS: 70450; 72125; 99284-25; 99285-25